=== PATIENT | female | born 1980 | race Caucasian/White ===

== ENCOUNTER 2020-11-02 17:00 | Emergency (ER) | payer OTHER ==
[2020-11-02 17:46] LABS: BASOPHIL 0.6 % (0-2); EOSINOPHIL 1.4 % (0-5); HCT 40.7 % (37.0-47.0); HGB 13.6 g/dl (12.5-16.0); LYMPHOCYTE 28.5 % (15-48); MCH 30.8 pg (25.0-31.0); MCHC 33.4 g/dL (32.0-36.0); MCV 92.1 fL (78.0-100.0); MONOCYTE 8.9 % (0-12); MPV 9.5 fL (6.0-9.5); NEUTROPHIL 60.3 % (41-80); NRBC 0; PLT 208 K/uL (150-400); RBC 4.42 M/uL (4.20-5.40); RDW 12.2 % (11.5-14.0); WBC 7.2 K/uL (4.0-10.5)
[2020-11-02 18:01] LABS: INR 0.95 (0.9-1.2); PTT 28.2 SECONDS (22.2-34.7)
[2020-11-02 18:08] LABS: ALBUMIN 3.9 g/dL (3.4-5.0); BILIRUBIN - TOTAL 0.2 mg/dL (0.2-1.0); BUN/CREAT RATIO (CALC) 13.5 RATIO; CREATININE 0.74 mg/dL (0.51-0.95); GLOBULIN (CALCULATION) 3.9 g/dL; POTASSIUM 3.9 mmol/L (3.5-5.1); TOTAL PROTEIN 7.8 g/dL (6.4-8.2)
[2020-11-02 18:10] LABS: BILIRUBIN NEGATIVE (NEGATIVE); BLOOD 1+ Ery/uL (NEGATIVE); CLARITY CLEAR (CLEAR); COLOR YELLOW (YELLOW); GLUCOSE (U) NORMAL (NORMAL); LEUKOCYTES NEGATIVE Leu/uL (NEGATIVE); NITRITE NEGATIVE (NEGATIVE); PROTEIN NEGATIVE (NEGATIVE); UROBILINOGEN 0.2 mg/dL (0.2-1.0)
[2020-11-02 18:15] LABS: BACTERIA TRACE; URINARY WBC RARE
[2020-11-02 18:16] LABS: AMORPHOUS URATES CRYSTALS TRACE
[2020-11-15] MEDS ORDERED: CITALOPRAM HBR20 MG PO (11:04)
[2020-11-15] MEDS ORDERED: CLONAZEPAM0.5 MG PO (11:04)
== END 2020-11-02 18:55 | disposition home or self-care (01) ==
LOC: FER 17:00
PROVIDERS: Emergency Medicine
DX: K62.5 Hemorrhage of anus and rectum (principal); Z88.0 Allergy status to penicillin; Z88.5 Allergy status to narcotic agent
CPT/HCPCS: 36415; 80053; 81001; 83690; 85025; 85610; 85730; 99283

== ENCOUNTER → 2020-11-23 | Day surgery (SDC) | payer OTHER ==
[~2020-11-23] VITALS: Ht 167.6 cm; Wt 84.4 kg
[~2020-11-23] MED LIST: CITALOPRAM HBR20 MG PO; CLONAZEPAM0.5 MG PO
[2020-11-23 08:37] LABS: HCG (URINE) SCREEN NEGATIVE (NEGATIVE)
== END | disposition home or self-care (01) ==
LOC: FAS 07:30
PROVIDERS: Anesthesiology
DX: K62.1 Rectal polyp (principal); K92.1 Melena; N39.0 Urinary tract infection, site not specified; F41.9 Anxiety disorder, unspecified; F32.9 Major depressive disorder, single episode, unspecified; F52.0 Hypoactive sexual desire disorder; Z88.5 Allergy status to narcotic agent; Z88.0 Allergy status to penicillin; Z90.49 Acquired absence of other specified parts of digestive tract; F17.200 Nicotine dependence, unspecified, uncomplicated; D69.9 Hemorrhagic condition, unspecified; R31.9 Hematuria, unspecified; R04.0 Epistaxis
CPT/HCPCS: 84703; J2250; J2704; J7120